=== PATIENT | male | born 1995 | race Caucasian/White ===

== ENCOUNTER 2021-05-17 11:47 | Emergency (ER) | payer BC, SELFPAY ==
[2021-05-17 12:54] VITALS: BP 121/73; PULSE 64; RESP 18; TEMP 36.7; O2SAT 100
[2021-05-17 13:26] VITALS: BP 128/79; PULSE 57; RESP 20; TEMP 36.7; O2SAT 98
--- NOTE | 2021-05-17 13:47 | ED_ITS ---
HPI - Abdominal Pain General Chief Complaint: Abdominal Pain Stated Complaint: abd pain Time Seen by Provider: 05/17/21 13:23 Source: patient Mode of arrival: ambulatory History of Present Illness HPI narrative: 25-year-old male with no significant past medical history presenting to the ED complaining of epigastric/LUQ abdominal pain since yesterday with associated nausea and diarrhea. Reports pain woke him up from sleep yesterday. Reports 1 episode of black stool after taking Pepto-Bismol. Denies fever, chills, vomiting, constipation, dysuria/hematuria, recent travel, others with similar symptoms Reports eating greasy burger yesterday Related Data Previous Rx's Medication Instructions Recorded alum-mag hydroxide-simeth [Maalox 5 ml PO 5XD PRN #30 ml 05/17/21 Advanced] famotidine [Pepcid] 20 mg PO DAILY #14 tab 05/17/21 ondansetron HCl [Zofran] 4 mg PO Q8H PRN #10 tab 05/17/21 Allergies Allergy/AdvReac Type Severity Reaction Status Date / Time latex Allergy Itching Verified 05/17/21 12:53 Review of Systems Review of Systems Constitutional: No Fever, No Chills ENT/Mouth: No Ear Pain, No sore throat Cardiovascular: No Chest Pain, No SOB Respiratory: No Cough, No Dyspnea Gastrointestinal: + Nausea, No Vomiting, + Diarrhea, No Constipation, + Abdominal pain, No Hematochezia, No Melena Genitourinary: No Dysuria, No Urinary Frequency, No Hematuria, No Flank Pain Musculoskeletal: No joint pain, No Myalgias, No Joint Swelling Skin: No Skin Lesions, No rash Neuro: No Weakness, No Numbness, No Headache Yes all other systems are reviewed and are negative Physical Exam Vital Signs: Vital Signs: Last Vital Signs Temp 98.1 F 05/17/21 14:37 Pulse 57 05/17/21 14:37 Resp 20 05/17/21 14:37 BP 125/80 05/17/21 14:37 Pulse Ox 98 05/17/21 14:37 Body Mass Index 20.0 Const: General: cooperative, healthy appearing and no acute distress Orientation/consciousness: patient oriented x3 Limitations: no limitations HENMT: Head: Yes normal to inspection Ears: hearing grossly normal bilaterally General nose exam: Normal external nose present Face and sinus: Yes normal facial exam Eyes: General: appearance normal, both eyes and all related structures EOM: EOMs intact bilaterally Neck: Neck: Yes normal visual inspection and Yes no meningeal signs Resp: Effort & Inspection: normal respiratory effort Cardio: Rate: regular rate GI: Inspection: Yes normal to inspection Palpation (GI): Soft to palpation, Tenderness to palpation present (GI) in the epigastrum, no guarding and not rigid : General: Yes no CVA tenderness Back/Spine/Pelvis: Back: no CVA tenderness Skin: Rashes: no rashes Wounds: no wounds Neuro: General: patient oriented x3 and no meningeal signs Gait exam (Neuro): Normal gait present Extrem: General: Yes normal to inspection Course Course Course Narrative: -no leukocytosis, labs otherwise unremarkable -1605-- On re-evaluation pt reports sx improvement, and abdomen is soft and nontender. Pt tolrated PO stanislaw anabelle and crackers in the ED without difficulty MDM - Abdominal Pain MDM Narrative Medical decision making narrative: 25-year-old male with no significant past medical history presenting to the ED complaining of epigastric/LUQ abdominal pain since yesterday with associated nausea and diarrhea. On exam VSS, NAD, nontoxic appearing, abdomen soft with epigastric TTP, no rebound or guarding, no CVAT. Concern for gastritis vs GERD vs bad food exposure. Lower concern for cholecystitis/cholelithiasis without right upper quadrant tenderness. Low concern for appendicitis/ diverticulitis Plan: Labs, UA, IVF, Sx Tx, Reassess, PO challenge Lab Data Result diagrams: 05/17/21 14:13 05/17/21 14:13 Labs: Lab Results 05/17/21 05/17/21 05/17/21 Range/Units 14:13 14:13 14:13 WBC 7.7 (4.8-10.8) X10*3/uL RBC 4.79 (4.60-5.80) X10*6/uL Hgb 14.8 (14.0-18.0) g/dl Hct 41.9 L (42-52) % MCV 87.5 (80-98) fL MCH 30.9 (27.0-33.0) pg MCHC 35.3 (31.0-36.0) g/dl RDW 11.9 (11.0-16.0) % Plt Count 225 (160-400) X10*3/uL MPV 10.3 (9.4-12.4) fL Immature Gran % (Auto) 0.3 (0.0-0.4) % Neut % (Auto) 72.6 (45-73) % Lymph % (Auto) 20.3 (20-40) % [place] % (Auto) 5.6 (2-11) % Eos % (Auto) 0.8 (0-4) % Baso % (Auto) 0.4 (0-2) % Lymph # (Auto) 1.6 (1.2-4.9) X10*3/uL [place] # (Auto) 0.4 (0.1-1.2) X10*3/uL Eos # (Auto) 0.1 (0.0-0.4) X10*3/uL Baso # (Auto) 0.0 (0.0-0.2) X10*3/uL Abs Immat Gran (auto) 0.02 (0.00-0.03) X10*3/uL Absolute Neuts (auto) 5.6 (2.0-8.3) X10*3/uL Absolute Nucleated RBC 0.000 (0.0-0.012) X10*3/uL Nucleated RBC % (auto) 0.0 (0.0-0.2) /100WBC Hold Blue Top SEE NOTE Sodium 140 (135-145) mmol/L Potassium 3.8 (3.3-5.1) mmol/L Chloride 104 (96-108) mmol/L Carbon Dioxide 26 (22-29) mmol/L Anion Gap 14 (12-20) BUN 10 (9-16) mg/dL Creatinine 0.85 (0.5-1.4) mg/dL Estim Creat Clear Calc 107.5 Estimated GFR > 60 Random Glucose 101 (60-115) mg/dL Calcium 10.7 H (8.4-10.2) mg/dL Magnesium 2.0 (1.6-2.6) mg/dL Total Bilirubin 0.9 (0.0-1.0) mg/dL Direct Bilirubin 0.3 (0.0-0.5) mg/dL AST 17 (5-37) U/L ALT 11 (0-40) U/L Alkaline Phosphatase 80 (39-117) U/L Total Protein 7.9 (6.5-8.0) g/dL Albumin 5.2 H (3.5-5.0) g/dL Lipase 4 L (8-78) U/L Discharge Plan Discharge Clinical Impression: Abdominal pain Qualifiers: Abdominal location: epigastric Qualified Code(s): R10.13 - Epigastric pain Patient Disposition: Home, Self-Care Instructions: Abdominal Pain (ED) Additional Instructions: Your blood work was reassuring today in the ED Is important for you to follow-up with your primary care doctor as well as a GI doctor Maalox and Pepcid will help with acid reflux Zofran as antinausea medication, take as needed If you are unable to eat or drink, persistent nausea or vomiting, or developed fever please return to the ED Prescriptions: New ondansetron HCl [Zofran] 4 mg tablet 4 mg PO Q8H PRN (Reason: nausea and vomiting) Qty: 10 RF: 0 alum-mag hydroxide-simeth [Maalox Advanced] 200-200-20 mg/5 mL suspension 5 ml PO 5XD PRN (Reason: dyspepsia) Qty: 30 RF: 0 famotidine [Pepcid] 20 mg tablet 20 mg PO DAILY Qty: 14 RF: 0 Referrals: Stephen Romero [Physician] - 1 week Pedro Reyes MD [Primary Care Provider] - 2 days [facility] Past Medical History Attestation statement: The following information was validated with the patient. Social History Social History Patient Tobacco Use Status: Never used Tobacco Use of substances other than those prescribed or required for medical reasons: No Advance Directives: No Advance Directives Information Provided: No
[2021-05-17 14:21] LABS: MANUAL DIFF FLAG NO
[2021-05-17 14:24] LABS: Basophils Percent Auto 0.4 % (0-2); Eosinophils Absolute Auto 0.1 X10*3/uL (0.0-0.4); Eosinophils Percent Auto 0.8 % (0-4); Hematocrit 41.9 % (42-52); Hemoglobin 14.8 g/dl (14.0-18.0); Imm Gran Abs Auto 0.02 X10*3/uL (0.00-0.03); Imm Gran Pct Auto 0.3 % (0.0-0.4); Lymphocytes Absolute Auto 1.6 X10*3/uL (1.2-4.9); Lymphocytes Percent Auto 20.3 % (20-40); Mean Corpuscular HGB Conc 35.3 g/dl (31.0-36.0); Mean Corpuscular Hemoglobin 30.9 pg (27.0-33.0); Mean Corpuscular Volume 87.5 fL (80-98); Mean Platelet Volume 10.3 fL (9.4-12.4); Monocytes Absolute Auto 0.4 X10*3/uL (0.1-1.2); Monocytes Percent Auto 5.6 % (2-11); Neutrophils Absolute Auto 5.6 X10*3/uL (2.0-8.3); Neutrophils Percent Auto 72.6 % (45-73); Platelet Count 225 X10*3/uL (160-400); Red Blood Count 4.79 X10*6/uL (4.60-5.80); Red Cell Distribution Width 11.9 % (11.0-16.0); White Blood Count 7.7 X10*3/uL (4.8-10.8)
[2021-05-17] MEDS: ondansetron HCL 4 MG/2 ML VIAL IVPUSH (14:28)
[2021-05-17] MEDS: Lidocaine HCl Viscous 2 % 15 ML SOLUTION MUCOUS MEM (14:28)
[2021-05-17] MEDS: Magnesium Hydrox/Alum Hydrox 30 ML ORAL.SUSP PO (14:28)
[2021-05-17] MEDS: Famotidine/PF 20 MG/2 ML VIAL IVPUSH (14:28)
[2021-05-17] MEDS: 0.9 % Sodium Chloride 1,000 ML 999 ML IVCONT (14:28)
[2021-05-17 14:37] VITALS: BP 125/80; PULSE 57; RESP 20; TEMP 36.7; O2SAT 98
--- NOTE | 2021-05-17 14:40 | PC.NURSE ---
Pt alert, oriented, vss. Pt reports epigastric, LUQ abd pain, n/v/d started yesterday, +BS x4. He states pain woke him up from sleep this morning. Reports 1 episode of black stool after taking Pepto-Bismol yesterday. IV line established, labs drawn, fluid hung, meds given as documented. No apparent distress at this time, awaiting ct scan. Mom at bedside.
[2021-05-17 14:52] LABS: Alanine Aminotransferase 11 U/L (0-40); Albumin Level 5.2 g/dL (3.5-5.0); Alkaline Phosphatase 80 U/L (39-117); Anion Gap 14 (12-20); Aspartate Amino Transferase 17 U/L (5-37); Bilirubin Direct 0.3 mg/dL (0.0-0.5); Bilirubin Total 0.9 mg/dL (0.0-1.0); Blood Urea Nitrogen 10 mg/dL (9-16); Calcium 10.7 mg/dL (8.4-10.2); Carbon Dioxide 26 mmol/L (22-29); Chloride 104 mmol/L (96-108); Creatinine Clr Calc Pharmacy 107.5; Estimated Glomerular Filt Rate > 60; Glucose Random 101 mg/dL (60-115); Lipase 4 U/L (8-78); Potassium 3.8 mmol/L (3.3-5.1); Sodium 140 mmol/L (135-145); Total Protein 7.9 g/dL (6.5-8.0)
== END 2021-05-17 16:45 | disposition home or self-care (01) ==
PROVIDERS: Physician Assistant; Emergency Provider Emergency Medicine; PCP Internal Medicine
DX: R10.13 Epigastric pain (principal); R11.0 Nausea; R19.7 Diarrhea, unspecified
CPT/HCPCS: 36415; 80048; 80076; 83690; 83735; 85025; 96361; 96374; 96375; 99284; J2405